=== PATIENT | male | born 1955 | race Caucasian/White ===

== ENCOUNTER → 2022-06-17 12:31 | Outpatient (CLI) | payer OTHER, SELFPAY ==
--- NOTE | 2022-06-17 | DI.MRI.S_ITS ---
PROCEDURE: MR LUMBAR SPINE WO CON INDICATIONS: LUMBAGO WITH SCIATICA, LEFT SIDE TECHNIQUE: Noncontrast sagittal T1 spin echo and T2 fast echo, sagittal STIR, and T2 fast spin echo through the lumbar spine. In cases with scoliosis, additional coronal T2 fast spin echo may be performed. COMPARISON: None. FINDINGS: Image quality: Excellent. Alignment and Curvature: There is normal bony alignment. Bone Marrow: Marrow is of normal overall signal. No acute vertebral body compression fractures. Spinal Cord: Conus medullaris terminates at the L1 level. Visualized cord demonstrates normal signal and size. Paraspinous Soft Tissues: No paravertebral masses. T12-L1: Mild disc desiccation and height loss. Broad-based disc bulge. Moderate facet ligamentum flavum hypertrophy. No canal stenosis. No foraminal stenosis. L1-L2: Mild disc desiccation and height loss. Moderate facet ligamentum flavum hypertrophy. No canal stenosis. No foraminal stenosis. L2-L3: Moderate disc desiccation and height loss. Broad-based disc bulge. Severe facet ligamentum flavum hypertrophy. Moderate canal stenosis. Moderate right foraminal stenosis. No left neural foraminal narrowing. L3-L4: Moderate disc desiccation and height loss. Broad-based disc bulge. Moderate facet and ligamentum flavum hypertrophy. No canal stenosis. Mild bilateral neural foraminal stenosis. L4-L5: Mild disc desiccation and height loss. Severe facet and ligamentum flavum hypertrophy. Moderate canal stenosis. Mild bilateral neural foraminal stenosis. There is a small posterior focal high-intensity zone. L5-S1: Mild disc desiccation and height loss. Broad-based disc bulge. Severe facet and ligamentum flavum hypertrophy. No canal stenosis. Mild bilateral neural foraminal stenosis. There is a small posterior focal high-intensity zone. IMPRESSION: 1. Mild to moderate disc desiccation and height loss throughout the lumbar spine. 2. Broad-based disc bulges and facet and ligamentum flavum hypertrophy with resultant moderate canal stenosis at L2-3 and L4-5. 3. Moderate right neural foraminal stenosis at L2-3. No other significant foraminal narrowing of the lumbar spine. Dictated by: Amy Ascencio M.D. on 06/17/2022 at 13:57 Approved by: Amy Ascencio M.D. on 06/17/2022 at 14:02
== END ==
PROVIDERS: Referring Provider Physical Medicine & Rehabilitation Pain Medicine; Visit Provider Physical Medicine & Rehabilitation Pain Medicine
DX: M51.16 Intervertebral disc disorders with radiculopathy, lumbar region (principal); M51.17 Intervertebral disc disorders with radiculopathy, lumbosacral region; M48.061 Spinal stenosis, lumbar region without neurogenic claudication
CPT/HCPCS: 72148

== ENCOUNTER → 2024-05-31 07:22 | Outpatient (CLI) | payer OTHER, SELFPAY ==
--- NOTE | 2024-05-31 07:23 | DI.ECHO.S_ITS ---
[facility]---------+ [facility] : : [address] : : [place] : : [id number] : : Phone: [phone] Echocardiogram Report + + :Name: GILMA MACKENZIE Study Date: 05/31/2024 Height: 69.5 in: :[facility] ReadingLocation: Weight: 180 lb : : Gender: Male BSA: 2.0 m2 : :: 1955 Age: 68 yrs BP: 140/94 mmHg: :Reason For Study: HEART DISEASE : :Ordering Physician: CATIE, : :DENEEN Performed By: Erma Webb : :Referring: DENEEN HADDAD : + + Interpretation Summary 1) Normal left ventricular thickness, size, wall motion, and systolic function (EF 55-60%). 2) Normal right ventricular size and function. 3) NThere is mild aortic regurgitation. 4) No prior Echo available for comparison. Procedure: A two-dimensional transthoracic echocardiogram with color flow and Doppler was performed. The study quality was technically adequate. There is no prior echocardiogram noted for this patient. The patient was in sinus rhythm with heart rates between 55-72 bpm during the exam. Left Ventricle: The left ventricle is normal in size and wall thickness. The ejection fraction is estimated to be 55-60%. Left ventricular systolic function appears normal without focal wall motion abnormalities. Diastolic parameters suggest a relaxation abnormality of the left ventricle, consistent with probable normal filling pressures. Right Ventricle: The right ventricle is normal in size and function. Atria: The left atrial size is normal. Right atrial size is normal. There is no Doppler evidence for an interatrial shunt. Mitral Valve: The mitral valve leaflets appear to open well. There is no mitral regurgitation noted. Aortic Valve: The aortic valve opens well. There is no aortic valve stenosis. There is mild aortic regurgitation. Tricuspid Valve: The tricuspid valve leaflets are thin and pliable. No tricuspid regurgitation. Pulmonary artery pressures cannot be estimated because of the lack of a measurable TR jet velocity. Pulmonic Valve: The pulmonic valve is not well seen, but is grossly normal. There is no pulmonic valvular regurgitation. Great Vessels: The aortic root is normal size. The aortic root is mildly dilated. The IVC is of normal diameter and collapses greater than 50% with a sniff. This suggests a low right atrial pressure of 3 mm Hg. Pericardium/ Pleura There is no pericardial effusion. There is no pleural effusion. MMode/2D Measurements & Calculations LVIDd: 5.2 cm LVOT diam: 2.2 cm LVIDs: 3.8 cm Ao root diam: 3.8 cm FS: 27.8 % asc Aorta Diam: 4.0 cm EPSS: 1.1 cm Ao Arch Diam (Prox Trans): 3.2 cm IVSd: 0.92 cm LVPWd: 0.88 cm LV carrillo. diameter/BSA (cm/m^2): 2.6 LV sys. diameter/BSA (cm/m^2): 1.9 LA A2 area: 22.5 cm2 RA long axis: 5.6 cm LA A4 area: 14.4 cm2 RA area: 16.2 cm2 LA length (vol): 4.9 cm RA vol: 39.6 ml LA vol: 56.7 ml RA : 19.9 ml/m2 LA vol index: 28.5 ml/m2 IVC diam: 1.1 cm RVD1 (basal): 4.0 cm RVD2 (mid): 3.0 cm TAPSE: 1.7 cm Doppler Measurements & Calculations Ao V2 max: 177.5 cm/sec LVOT Max Fabien: 109.2 cm/sec Ao V2 mean: 116.4 cm/sec LV V1 max P.8 mmHg Ao max P.6 mmHg LV V1 VTI: 22.0 cm Ao mean P.3 mmHg SMITH(I,D): 2.2 cm2 Ao V2 VTI: 36.9 cm SMITH(V,D): 2.3 cm2 sev ratio: 0.60 SMITH indexed to BSA (cm^2/m^2): 1.1 MV E max fabien: 50.8 cm/sec PA V2 max: 89.5 cm/sec MV A max fabien: 63.1 cm/sec PA V2 mean: 62.1 cm/sec MV E/A: 0.80 PA mean P.7 mmHg Med Peak E' Fabien: 8.0 cm/sec PA pr(Accel): 36.6 mmHg E/E' med: 6.3 Lat Peak E' Fabien: 9.9 cm/sec E/E' lat: 5.1 E/e' average: 5.7 MV dec time: 0.29 sec SV(NORBERTO): 82.9 ml Reading Physician:02:49 PM
== END ==
PROVIDERS: PCP Family Medicine; Visit Provider Physician Assistant
DX: I35.1 Nonrheumatic aortic (valve) insufficiency (principal); I77.810 Thoracic aortic ectasia; I51.9 Heart disease, unspecified
CPT/HCPCS: 93306